=== PATIENT | female | born 1980 | race Two or more races ===

== ENCOUNTER 2016-11-16 20:11 | Emergency (ER) | payer MEDICAID ==
[2016-11-16 21:11] LABS: URINE BILIRUBIN NEGATIVE (NEGATIVE); URINE BLOOD 1+ (NEGATIVE); URINE GLUCOSE (UA) NEGATIVE (NEGATIVE); URINE LEUKOCYTE ESTERASE NEGATIVE (NEGATIVE); URINE NITRITE NEGATIVE (NEGATIVE); URINE PROTEIN NEGATIVE (NEGATIVE); URINE UROBILINOGEN 1 mg/dL (0-1 mg/dl)
[2016-11-16 21:17] LABS: URINE APPEARANCE CLEAR; URINE COLOR YELLOW
[2016-11-16 21:20] LABS: HCG,QUALITATIVE URINE NEGATIVE
[2016-11-16] MEDS ORDERED: HYDROCODONE/ACETAMINOPHEN 5/325MG TABLET ONE (21:42)
[2016-11-16] MEDS ORDERED: METHYLPRED SOD SUCCINATE 125 MG VIAL ONE (21:42)
[2016-11-16] MEDS ORDERED: METHOCARBAMOL 750 MG TABLET ONE (21:42)
[2016-11-16 21:45] LABS: URINE RBC 0-2 /hpf; URINE WBC 0-2 /hpf
[2016-11-16 21:46] LABS: URINE BACTERIA RARE; URINE EPITHELIAL CELLS 0-2 /hpf
[2016-11-19 15:33] LABS: CHLAMYDIA BD Negative (Negative); N.GONORRHOEAE BD Negative (Negative); SOURCE Urine (())
== END 2016-11-16 21:56 | disposition home or self-care (01) ==
LOC: ED 20:11
DX: M54.16 Radiculopathy, lumbar region (principal); M54.42 Lumbago with sciatica, left side; M54.41 Lumbago with sciatica, right side
CPT/HCPCS: 87491; 87591; 81025; 81001; 99283 ×2; 96372; A9270 ×2; J2930